=== PATIENT | male | born 1970 | race Caucasian/White ===

== ENCOUNTER 2016-04-11 03:36 | Inpatient (IN) | payer OTHER ==
[~2016-04-11] VITALS: Ht 185.4 cm; Wt 124.0 kg
[2016-04-11] VITALS (19 sets, daily range): BP systolic 140–184; BP diastolic 84–112; PULSE 70–140; TEMP 36.6–37.4; O2SAT 98–99; Ht 185.4 cm; Wt 124.0 kg
[~2016-04-11 03:36] MED LIST: BISO5TAB3 PO; CRDCD300 PO; FRS/80 PO; HYDR4TAB2 PO; HYDR8TAB29 PO
[2016-04-11] MEDS ORDERED: LORAZEPAM 2 MG/ML 1 ML VIAL ONE (03:41)
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
[2016-04-11] MEDS ORDERED: ACETAMINOPHEN 500 MG TAB PO STA (04:08)
[2016-04-11 04:16] LABS: BASO % 0.1 %; BASO ABS # 0.01 K/uL (0-0.2); COMPLETE YES; EOS % 0.1 %; HEMATOCRIT 33.1 % (42-52); IG% 0.5 %; LYMPH % 1.5 %; LYMPH ABS # 0.13 K/uL (1.2-3.4); MEAN CELL VOLUME 80.5 fL (80-100); MEAN CORPUSCULAR HGB CONC 33.5 g/dl (32-36); MEAN PLATELET VOLUME 10.1 fL (7.4-10.4); MONO % 0.7 %; NEUT % 97.1 %; PLATELET COUNT 111 K/uL (130-400); RED BLOOD COUNT 4.11 M/uL (4.7-6.1); WHITE BLOOD COUNT 8.74 K/uL (4.8-10.8)
[2016-04-11 04:24] LABS: INR 1.1 (0.9-1.1); PROTHROMBIN TIME (PATIENT) 11.9 SECONDS (9.0-12.0)
[2016-04-11 04:48] LABS: ALB/GLOB RATIO 0.8 (0.9-2); BUN/CREATININE RATIO 7.9 (10-20); CALCIUM 8.1 mg/dl (8.5-10.1); CKMB/CK RATIO 5.6 (0-3.0); CREATININE 8.3 mg/dl (0.60-1.40); POTASSIUM 5.6 mmol/L (3.5-5.1)
[2016-04-11] MEDS ORDERED: VANCOMYCIN INJ 1,000 MG in SODIUM CHLORIDE 0.9% 250ML 250 ML IV STA (05:02)
[2016-04-11] MEDS ORDERED: AZTREONAM IV 2,000 MG in DEXTROSE 5% 100ML 100 ML IV STA (05:02)
[2016-04-11] MEDS ORDERED: HYDROmorphone INJ 2 MG/ML SYR/VIAL IV STA (05:23)
--- NOTE | 2016-04-11 07:34 | DIAGNOSTIC IMAGING REPORT ---
CHEST ONE VIEW PORTABLE CLINICAL HISTORY: b12b dyspnea COMPARISON STUDY: 02/08/2016 FINDINGS: Moderate cardiomegaly. Prominent pulmonary vasculature. Prominent central hilar shadows unchanged. PermCath in superior vena cava. Aeration left lung bases slightly improved as is the peripheral aspect of the right base. IMPRESSION: Improving congestive heart failure. Electronically signed by: Max Anand M.D. 04/11/2016 7:32 AM Dictated Date/Time: 04/11/2016 7:32 AM
[2016-04-11] MEDS ORDERED: ACETAMINOPHEN 325 MG TAB PO PRN (08:00)
[2016-04-11] MEDS ORDERED: GLUCOSE 40% GEL 15 GM TUBE PO PRN (08:00)
[2016-04-11] MEDS ORDERED: GLUCOSE 10 TABS/TUBE PO PRN (08:00)
[2016-04-11] MEDS ORDERED: ONDANSETRON INJ 2 MG/ML 2 ML VIAL IV PRN (08:00)
[2016-04-11] MEDS ORDERED: DEXTROSE 50% 50 ML SYR IV PRN (08:00)
[2016-04-11] MEDS ORDERED: GLUCAGON FOR INJ 1 MG VIAL SQ PRN (08:00)
[2016-04-11] MEDS ORDERED: POLYETHYLENE (MIRALAX) 17 GM PACK PO PRN (08:00)
[2016-04-11] MEDS ORDERED: PHARMACY GLYCEMIC MGMT CONSULT PRN (08:10)
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
[2016-04-11] MEDS ORDERED: HydrALAZINE HCL 20 MG/ML VIAL IV. PRN (08:30)
[2016-04-11 08:44] LABS: PHOSPHORUS 1.6 mg/dl (2.5-4.9)
[2016-04-11] MEDS ORDERED: VANCOMYCIN CONSULT ACTIVE PRN (09:15)
[2016-04-11] MEDS ORDERED: AZTREONAM CONSULT ACTIVE PRN ×2 (09:15)
[2016-04-11] MEDS ORDERED: VANCOMYCIN INJ 1,600 MG in SODIUM CHLORIDE 0.9% 500ML 500 ML IV SCH (09:30)
[2016-04-11] MEDS ORDERED: SODIUM CHLORIDE 0.9% 1000ML 1,000 ML IV SCH (10:15)
[2016-04-11] MEDS: HYDROmorphone HCL 2 MG TAB PO PRN ×2 (10:21→19:59)
[2016-04-11] MEDS: INSULIN GLARGINE SOLOSTAR 100 UNITS/ML 3 ML PEN SC SCH ×2 (10:30→21:00)
[2016-04-11] MEDS: INSULIN ASPART 100 UNITS/ML 3 ML PEN SC SCH ×3 (11:00→21:00)
--- NOTE | 2016-04-11 11:10 | Pharmacy Progress Note ---
Pharmacy Antibiotic Consult Date of Service: Apr 11, 2016. Pharmacy Dosing Scope Pharmacy is consulted to initiate Vancomycin and Aztreonam IV dosing therapy, order appropriate labs and adjust drug dose/frequency. Subjective The patient is a 45 year old male admitted on Apr 11, 2016 at 07:52 with Sepsis , meets protocol (pulmonary based) that Dr. Johnson ordered both Azactam and Vancomycin. Patient received first dose of both in the E.D. Objective Height (Feet): 6 Height (Inches): 1.00 Weight (Kilograms): 130.000 Lab Results (24hrs): Laboratory Tests Test 04/11/16 03:55 BUN/Creatinine Ratio 7.9 Blood Urea Nitrogen 66 mg/dl Creatinine 8.30 mg/dl White Blood Count 8.74 K/uL Red Blood Count 4.11 M/uL Hemoglobin 11.1 g/dL Hematocrit 33.1 % Mean Corpuscular Volume 80.5 fL Mean Corpuscular Hemoglobin 27.0 pg Mean Corpuscular Hemoglobin Concent 33.5 g/dl Platelet Count 111 K/uL Mean Platelet Volume 10.1 fL Neutrophils (%) (Auto) 97.1 % Lymphocytes (%) (Auto) 1.5 % Monocytes (%) (Auto) 0.7 % Eosinophils (%) (Auto) 0.1 % Basophils (%) (Auto) 0.1 % Neutrophils # (Auto) 8.49 K/uL Lymphocytes # (Auto) 0.13 K/uL Monocytes # (Auto) 0.06 K/uL Eosinophils # (Auto) 0.01 K/uL Basophils # (Auto) 0.01 K/uL Micro Results: Item Value Date Time Blood Culture Received 04/11/16 0436 Blood Pending Blood Culture Received 04/11/16 0427 Blood Pending Recent Pertinent Medications Item Value Date Time Aztreonam 500 mg/ 105 ml @ 105 mls/hr 04/11/16 1400 Dextrose Q8H/IV Assessment & Plan The patient is ESRD patient on Hemodialysis. He received a Vancomycin 1gm dose in the E.D., I additionally ordered 1600mg to give him a total loading dose of 2600mg (~20mg/kg) Will check a random level with AM labs tomorrow morning and proceed based on HD sessions going forward. In regards to Aztreonam, patient received Azactam 2gm IV x 1 in the E.D and then will receive 25% of regular dose on regular frequency of every 8 hours going forward. Patient has temporary HD catheter in place at this time due to failure of his RUE fistula. Pharmacy will continue to follow and will adjust dose/frequency as necessary. Thank you
[2016-04-11 13:10] LABS: INFLUENZA A PCR Neg for Influ A (NEG); INFLUENZA B PCR Neg for Influ B (NEG)
[2016-04-11] MEDS: HEPARIN SOD 5000 UNIT/0.5 ML CARP SQ SCH ×2 (14:00→22:00)
[2016-04-11] MEDS: AZTREONAM IV 500 MG in DEXTROSE 5% 100ML 100 ML IV SCH ×2 (14:24→21:54)
[2016-04-11] MEDS: HEPARIN SOD (PORCINE) 1000 UNIT/ML 10 ML VIAL IV SCH ×3 (16:30→18:30)
[2016-04-11] MEDS ORDERED: HEPARIN SOD (PORCINE) 1000 UNIT/ML 10 ML VIAL IV SCH (16:30)
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
[2016-04-11] MEDS ORDERED: hydrOXYzine HCL 10 MG TAB PO PRN (23:00)
--- NOTE | 2016-04-11 23:07 | Progress Note ---
Progress Note Date of Service Apr 11, 2016. Progress Note ATTENDING NOTE : 45 yo Male poorly compliant to medical care ESRD on HD, HX Of CAD, diastolic heart failure multiple co morbidities admitted with SOB , missed HD found to be vol overloaded with electrolyte derangement -Hyperkalemia POC troponin was elevated repeat level normalized CXray shows pulmonary vascular congestion Acute on chronic CHF with diastolic dysfunction due to vol overload missed HD appreciate Nephrology eval s/p HD today follow vol status Elevated troponin : in setting of decompensated CHF /ESRD pt has hx of CAD , with poor compliance to meds ECHO : on 01/2016 -preserved LV function EF 55-60 % correction of vol status with HD repeat ECHO ordered consider Cardiology eval if new wall motion abnormality noted pt was seen by [facility] in last admission elevated Lactic acid : r/o Sepsis blood culture /urine culture ordered on empiric ABx cont ABx till culture reports are available full code
[2016-04-11 23:10] LABS: URINE APPEARANCE CLOUDY (CLEAR); URINE BILIRUBIN NEG (NEG); URINE COLOR YELLOW; URINE EPITHELIAL CELL AUTO >30 /lpf (0-5); URINE NITRITE NEG (NEG); URINE SPECIFIC GRAVITY 1.014 (1.000-1.030); UROBILINOGEN NEG (NEG)
[2016-04-11 23:17] LABS: MANUAL MICROSCOPIC REQUIRED? NO; REVIEW REQ? YES
[2016-04-11 23:22] LABS: URINE PATH CASTS 1-5 GRANULAR CASTS /lpf (0)
[2016-04-11 23:58] LABS: CALCIUM 7.4 mg/dl (8.5-10.1); CREATININE 6.7 mg/dl (0.60-1.40); MAGNESIUM 2.1 mg/dl (1.8-2.4); POTASSIUM 4.8 mmol/L (3.5-5.1)
[2016-04-12] VITALS (25 sets, daily range): BP systolic 133–176; BP diastolic 73–109; PULSE 67–89; TEMP 36.5–37.4; O2SAT 97–100
[2016-04-12] MEDS: HYDROmorphone HCL 2 MG TAB PO PRN ×3 (01:20→17:01)
[2016-04-12] MEDS: AZTREONAM IV 500 MG in DEXTROSE 5% 100ML 100 ML IV SCH ×3 (05:58→21:02)
[2016-04-12] MEDS: HEPARIN SOD 5000 UNIT/0.5 ML CARP SQ SCH ×3 (06:00→20:58)
[2016-04-12 06:43] LABS: HEMATOCRIT 32.6 % (42-52); MEAN CELL VOLUME 82.7 fL (80-100); MEAN CORPUSCULAR HEMOGLOBIN 27.7 pg (25-34); MEAN CORPUSCULAR HGB CONC 33.4 g/dl (32-36); PLATELET COUNT 100 K/uL (130-400); RED BLOOD COUNT 3.94 M/uL (4.7-6.1); WHITE BLOOD COUNT 6.88 K/uL (4.8-10.8)
[2016-04-12 06:57] LABS: ESTIMATED AVERAGE GLUCOSE 108 mg/dl; HA1C FLAG Normal (Normal)
[2016-04-12] MEDS: INSULIN ASPART 100 UNITS/ML 3 ML PEN SC SCH ×4 (07:00→20:56)
--- NOTE | 2016-04-12 07:50 | Nephrology Progress Note ---
Nephrology Progress Note Date of Service: Apr 12, 2016. Subjective 45 yo male with esrd with chronic pancreatitis who was admitted with elevated blood pressures, sob, volume overload. also had n/v and fevers and chills. missed dialysis on monday. pt has chronic abdominal pain. no more n/v. eating breakfast well. not requiring oxygen. had short dialysis treatment yesterday. Objective Date Time Temp Pulse Resp B/P Pulse Ox O2 Delivery O2 Flow Rate FiO2 04/12/16 04:00 36.8 67 19 141/98 97 Room Air 04/12/16 04:00 Room Air 04/12/16 00:00 36.7 75 17 150/102 98 Room Air 04/11/16 23:59 Room Air 04/11/16 21:40 36.8 95 179/106 04/11/16 21:30 140 163/110 04/11/16 21:15 92 157/110 04/11/16 21:00 80 162/101 04/11/16 20:45 78 165/105 04/11/16 20:30 78 167/111 04/11/16 20:15 84 150/112 04/11/16 20:00 Room Air 04/11/16 20:00 79 159/106 04/11/16 19:45 80 168/100 04/11/16 19:36 37.0 81 22 161/104 99 Room Air 04/11/16 19:30 72 178/107 04/11/16 19:15 86 159/110 04/11/16 19:00 84 175/103 04/11/16 18:45 80 169/102 04/11/16 18:30 75 178/97 04/11/16 18:15 72 184/109 04/11/16 17:55 37.0 70 176/112 04/11/16 16:00 Room Air 04/11/16 15:27 36.6 75 18 140/84 98 Room Air 04/11/16 12:00 Room Air 04/11/16 09:51 37.4 88 18 159/90 98 Room Air 04/11/16 08:16 94 04/11/16 07:50 89 25 144/78 98 Room Air Physical Exam: General-aaox3 Eyes-no scleral icterus ENT-mmm Neck-supple Lungs-cta Heart-rrr, 2/6 systolic murmur Abdomen-mild tenderness diffusely Extremities-+1 edema Neuro-nonfocal Current Inpatient Medications Medications (Trade) Dose Ordered Sig/Sania Route Start Time Stop Time Status Last Admin Dose Admin Heparin Sodium (Porcine) (Heparin Sq 5000 Unit/0.5ml) 5,000 unit Q8 SQ 04/11/16 14:00 05/11/16 13:59 Acetaminophen (Tylenol Tab) 650 mg Q4H PRN PO 04/11/16 08:00 05/11/16 07:59 Ondansetron HCl (Zofran Inj) 4 mg Q6H PRN IV 04/11/16 08:00 05/11/16 07:59 Polyethylene (Miralax Powder Packet) 17 gm DAILY PRN PO 04/11/16 08:00 05/11/16 07:59 Insulin Glargine (Lantus Solostar Pen) 12 unit Q12 SC 04/11/16 10:30 05/11/16 10:29 Insulin Aspart (novoLOG ASPART) SLIDING SCALE If C... ACHS SC 04/11/16 11:00 05/11/16 10:59 Glucose (Glucose 40% Gel) 15-30 GRAMS 15 GRAMS... UD PRN PO 04/11/16 08:00 05/11/16 07:59 Glucose (Glucose Chew Tab) 4-8 Tablets 4 Tabl... UD PRN PO 04/11/16 08:00 05/11/16 07:59 Dextrose (Dextrose 50% 50ML Syringe) 25-50ML OF 50% DW IV FOR... UD PRN IV 04/11/16 08:00 05/11/16 07:59 Glucagon (Glucagon Inj) 1 mg UD PRN SQ 04/11/16 08:00 05/11/16 07:59 Hydromorphone HCl (Dilaudid Tab) 4 mg QID PRN PO 04/11/16 08:00 04/25/16 07:59 04/12/16 01:20 4 MG Hydromorphone HCl (Dilaudid Tab) 8 mg TID PO 04/11/16 10:30 04/25/16 10:29 04/11/16 21:04 8 MG Aztreonam (Consult) 1 ea UD PRN N/A 04/11/16 09:15 05/11/16 09:14 Hydralazine HCl (HydrALAZINE INJ) 10 mg Q6H PRN IV. 04/11/16 08:30 05/11/16 08:29 Influenza Virus Vaccine Quadrival (Flu Vaccine) 0.5 ml ONCE ONCE IM. 04/12/16 08:00 04/12/16 08:01 Vancomycin HCl 1 ea 1 ea UD PRN N/A 04/11/16 09:15 05/11/16 09:14 Aztreonam/Dextrose (Azactam IV/D5 100ml) 105 ml @ 105 mls/hr Q8H IV 04/11/16 14:00 04/18/16 13:59 04/12/16 05:58 105 MLS/HR Heparin Sodium (Porcine) (Heparin Iv Bolus) 1,000 unit ONE IV 04/12/16 08:00 04/12/16 08:01 Heparin Sodium (Porcine) (Heparin Iv Bolus) 400 unit Q1H IV 04/12/16 08:00 04/12/16 10:01 Heparin Sodium (Porcine) (Heparin Iv Bolus) 1,000 unit ONE IV 04/12/16 08:00 04/12/16 08:01 Heparin Sodium (Porcine) (Heparin Iv Bolus) 400 unit Q1H IV 04/12/16 08:00 04/12/16 10:01 Hydroxyzine HCl (Vistaril Tab) 10 mg Q6H PRN PO 04/11/16 23:00 05/11/16 22:59 04/11/16 23:12 10 MG Last 24 Hours Test 04/11/16 09:45 04/11/16 10:49 04/11/16 11:35 04/11/16 15:58 Bedside Glucose 199 mg/dl 123 mg/dl Total Creatine Kinase 22 U/L Troponin I 0.177 ng/ml Lactic Acid Level 0.9 mmol/L Test 04/11/16 20:08 04/11/16 21:40 04/11/16 23:01 04/12/16 06:15 Bedside Glucose 96 mg/dl Urine Color YELLOW Urine Appearance CLOUDY Urine pH 5.0 Urine Specific [place] 1.014 Urine Protein 4+ Urine Glucose (UA) TRACE Urine Ketones NEG Urine Occult Blood 3+ Urine Nitrite NEG Urine Bilirubin NEG Urine Urobilinogen NEG Urine Leukocyte Esterase NEG Urine WBC (Auto) 5-10 /hpf Urine RBC (Auto) >30 /hpf Urine Hyaline Casts (Auto) 10-30 /lpf Urine Epithelial Cells (Auto) >30 /lpf Urine Bacteria (Auto) 1+ Urine Renal Epithelial Cells /lpf Urine Pathogenic Casts 1-5 GRANULAR CASTS /lpf Sodium Level 135 mmol/L Potassium Level 4.8 mmol/L Chloride Level 102 mmol/L Carbon Dioxide Level 25 mmol/L Anion Gap 8.0 mmol/L Blood Urea Nitrogen 60 mg/dl Creatinine 6.70 mg/dl Est Creatinine Clear Calc Drug Dose 19.9 ml/min Estimated GFR () 10.6 Estimated GFR (Non- 9.1 BUN/Creatinine Ratio 9.0 Random Glucose 102 mg/dl Calcium Level 7.4 mg/dl Magnesium Level 2.1 mg/dl Hepatitis B Surface Antigen NEG Hepatitis B Surface Antibody NEG White Blood Count 6.88 K/uL Red Blood Count 3.94 M/uL Hemoglobin 10.9 g/dL Hematocrit 32.6 % Mean Corpuscular Volume 82.7 fL Mean Corpuscular Hemoglobin 27.7 pg Mean Corpuscular Hemoglobin Concent 33.4 g/dl RDW Standard Deviation 49.3 fL RDW Coefficient of Variation 16.1 % Platelet Count 100 K/uL Mean Platelet Volume 10.0 fL Estimated Average Glucose 108 mg/dl Hemoglobin A1c 5.4 % Random Vancomycin Level 19.2 mcg/ml Date/Time Source Procedure Growth Status 04/11/16 21:40 Urine , Clean Catch Urine Culture Pending Received Assessment & Plan ESRD-for dialysis again today since today is his regular dialysis treatment schedule. when speaking to dialysis unit, pt has not brought in his med list. Dr. Ruiz has given him bp medications which he does not take. has a history of non-compliance and misses about once every other week and never stays for his full treatment. HTN-will try to obtain home meds, currently does not appear to be on bp medications. has a very long list of allergies. supposed to be on dilt but does not take it. pt states he starts to feel like he is going to pass out when the bp is lower. pt is willing to take the dilt and will give a much lower dose of 90mg to try to get goal diastolic under 100. LIDYA-phosphate binders are on hold secondary to low phos and likely will need restarted at some point in the hospitilization. meds he is supposed to be taking-likely not taking any of them other than the dilaudid: albuterol amiodarone 200mg po bid aspirin 81mg auryxia 3 tabs po tid with meals renvela 800mg 3 tabd tid with meals dilaudid 8mg four times a day lantus 50 units sq at bedtime nephrocaps vitamin d3 1000 iu bid zebeta 5mg at night diltiazem 240mg qam
[2016-04-12 08:00] LABS: BUN/CREATININE RATIO 8.4 (10-20); CALCIUM 7.6 mg/dl (8.5-10.1); CREATININE 7.3 mg/dl (0.60-1.40); MAGNESIUM 2.3 mg/dl (1.8-2.4); PHOSPHORUS 3.7 mg/dl (2.5-4.9); POTASSIUM 5.3 mmol/L (3.5-5.1)
[2016-04-12] MEDS ORDERED: INFLUENZA VIRUS QUAD VACCINE 0.5 ML SYR IM. ONE (08:00)
[2016-04-12] MEDS ORDERED: HEPARIN SOD (PORCINE) 1000 UNIT/ML 10 ML VIAL IV SCH ×2 (08:00)
[2016-04-12] MEDS: HEPARIN SOD (PORCINE) 1000 UNIT/ML 10 ML VIAL IV SCH ×4 (08:00→09:00)
[2016-04-12] MEDS: INSULIN GLARGINE SOLOSTAR 100 UNITS/ML 3 ML PEN SC SCH ×2 (08:20→20:56)
[2016-04-12] MEDS ORDERED: DILTIAZEM HCL 120 MG ER CAP PO SCH (09:00)
--- NOTE | 2016-04-12 09:21 | Pharmacy Progress Note ---
Pharmacy Antibiotic Prog Note Date of Service: Apr 12, 2016. Subjective: The patient is currently receiving vancomycin 2600 mg IV x 1 dose yesterday . The patient is currently on day # 2 of IV therapy. Objective: Height (Feet): 6 Height (Inches): 1.00 Weight (Kilograms): 127.900 Levels: Item Value Date Time Random Vancomycin Level 19.2 mcg/ml 04/12/16 0615 Lab Results (24hrs): Laboratory Tests Test 04/11/16 23:01 04/12/16 06:15 BUN/Creatinine Ratio 9.0 8.4 Blood Urea Nitrogen 60 mg/dl 62 mg/dl Creatinine 6.70 mg/dl 7.30 mg/dl White Blood Count 6.88 K/uL Assessment & Plan: was admitted yesterday on 04/11/16 due to fevers/flushing as well as missing his dialysis session on Monday. The source of his infection is unknown. He received hemodialysis yesterday. He was febrile yesterday with a Tmax of 38.2 but is not febrile today. His WBC is normal. This drug level is: Therapeutic Give vancomycin 1300 mg IV x 1 dose after hemodialysis Goal peak level estimate: between 35 - 40 mcg/mL. Goal trough level estimate: between 15 - 20 mcg/mL (indication: sepsis/ pulmonary source?). Random level has been ordered for: . Pharmacy will continue to follow and will adjust dose/frequency as necessary. Thank you
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
--- NOTE | 2016-04-12 11:20 | CARDIOLOGY CONSULTATION ---
DATE OF CONSULTATION: 04/12/2016 The patient seen and examined. Chart, medications, telemetry reviewed. REFERRING: Dr. Jennings. INDICATIONS: Wide complex tachycardia. HISTORY OF PRESENT ILLNESS: The patient is a 45-year-old complex male whose past medical history is notable for end-stage renal disease, on chronic dialysis replacement, history of necrotizing pancreatitis in 2007, multiple abdominal surgeries and abdominal hernias, history of past Staph aureus bacteremia and sepsis secondary to dialysis catheter infection, history of obesity, paroxysmal atrial arrhythmias with paroxysmal Afib flutter, who per report underwent flutter ablation during hospitalization in 09/[address] Olivo. He was recently hospitalized at [facility] in January with volume overload. He presents now once again noting worsening shortness of breath and increasing edema. Notes he felt poorly on Monday prior to admission with nausea and diarrhea, skipped dialysis that day, and presented due to worsening shortness of breath and complaints with anticipated inpatient management for volume overload, exclusion of possible underlying infection. While on monitor last night, he had paroxysmal Afib flutter with rapid ventricular response and aberrant conduction. He is referred now for further evaluation. He notes he had stopped all of his medications at home, "all medications make him feel poorly." He had previously been taking Zebeta, amiodarone as well as diltiazem in intermittent courses for management of arrhythmias. He notes he is not taking any of those recently. Denies headache or visual changes. Notes no melena, hematochezia, dysuria or hematuria. Has been notable for anorexia and gradual drop in weight. Notes no acute abdominal pain or discomfort. Blood pressures were substantially elevated on initial ER presentation. Notes blood pressures have been running high at home. He is currently undergoing dialysis. REVIEW OF SYSTEMS: Otherwise negative. ALLERGIES: MULTIPLE AND INCLUDE ISAMAR INHIBITORS, ALISKIREN, AMLODIPINE, BISOPROLOL, CLONIDINE, HALOPERIDOL, LABETALOL, LISINOPRIL, METOPROLOL, PENICILLIN, PIPERCILLIN/TAZOBACTAM, AND VANCOMYCIN. PAST MEDICAL HISTORY: In addition to above is notable for past elevations in troponins as well as preserved LV systolic function, presumed diastolic heart failure, and possible underlying ischemic heart disease. Carries a history of diabetes mellitus following necrotizing pancreatitis in 2007. PAST SURGICAL HISTORY: Notable for prior multiple abdominal surgeries and pancreatectomy, cholecystectomy, past tracheostomy during the acute illness. FAMILY HISTORY: Noncontributory. SOCIAL HISTORY: The patient is one-half pack per day smoker, uses no alcohol products. He is noncompliant with medications per history and per his own description. PHYSICAL EXAMINATION: VITAL SIGNS: Heart rate is 75, blood pressure is 146/95. HEENT: Normocephalic, atraumatic. Nares without discharge. Throat was clear. LUNGS: Reveal diminished breath sounds but are predominantly clear. CARDIOVASCULAR: Regular. There is no S3 gallop. ABDOMEN: Obese, soft, very large herniation of the abdominal tolbert with multiple ventral hernias. EXTREMITIES: Without cyanosis or clubbing. There is trace to 1+ lower extremity edema. NEUROLOGIC: The patient has a flat affect but answers questions appropriately. LABORATORY DATA: On presentation, white cell count was 8.7, hemoglobin 11.1, hematocrit of 31.1, platelet count was 111. Sodium is 137, potassium is 5.3, chloride is 104, bicarbonate is 23, BUN 62, creatinine is 7.3 this morning, calcium was 7.6. Troponins on presentation were elevated at 0.14 and 0.17, though with normal CK and MB fractions. He has been began on empiric antibiotic therapies due to concerns regarding possible infection, past history of dialysis catheter based infection. EKG reveals sinus rhythm with low-voltage QRS, nonspecific ST-segment changes. Telemetry reveals paroxysmal Afib flutter last evening with rapid rhythm with aberrant conduction on one occasion. IMPRESSION: A 45-year-old male with complex history of end-stage renal disease, past history of Afib flutter with rapid ventricular response, poor tolerance of medications and noncompliance, presents now with acute volume overload, renal insufficiency, possible underlying infection not excluded. Telemetry demonstrated an episode of Afib flutter with rapid ventricular response. PLAN: We will attempt to reinstitute low-dose beta-ted with carvedilol given past multiple intolerances. This may help with blood pressure as well, though patients undergoing dialysis should help significantly. Echocardiogram will be ordered given low voltage to exclude pericardial effusion given dialysis noncompliance. We will follow the patient along. If arrhythmias recur, would reconsult Dr. Olivo who performed Afib flutter ablation in 09/2015. [facility]
[2016-04-12] MEDS ORDERED: CARVEDILOL 3.125 MG TAB PO ONE (11:30)
[2016-04-12] MEDS ORDERED: VANCOMYCIN INJ 1,300 MG in SODIUM CHLORIDE 0.9% 250ML 250 ML IV SCH (18:00)
[2016-04-12] MEDS ORDERED: CARVEDILOL 3.125 MG TAB PO SCH (21:00)
[2016-04-13] VITALS (21 sets, daily range): BP systolic 128–195; BP diastolic 84–123; PULSE 72–93; TEMP 36.5–37.2; O2SAT 95–98
[2016-04-13] MEDS: HYDROmorphone HCL 2 MG TAB PO PRN ×4 (01:25→23:20)
[2016-04-13] MEDS: HEPARIN SOD 5000 UNIT/0.5 ML CARP SQ SCH ×3 (06:00→19:38)
[2016-04-13] MEDS: AZTREONAM IV 500 MG in DEXTROSE 5% 100ML 100 ML IV SCH ×2 (06:25→13:35)
[2016-04-13] MEDS: INSULIN ASPART 100 UNITS/ML 3 ML PEN SC SCH ×4 (07:00→19:38)
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
[2016-04-13] MEDS: INSULIN GLARGINE SOLOSTAR 100 UNITS/ML 3 ML PEN SC SCH ×2 (09:00→19:37)
[2016-04-13 09:06] LABS: BUN/CREATININE RATIO 9.1 (10-20); CALCIUM 7.8 mg/dl (8.5-10.1); CREATININE 6.4 mg/dl (0.60-1.40); MAGNESIUM 2.4 mg/dl (1.8-2.4); POTASSIUM 5.7 mmol/L (3.5-5.1)
--- NOTE | 2016-04-13 10:05 | CARDIOLOGY PROGRESS NOTE ---
DATE: 04/13/2016 DATE: 04/13/2016. The patient seen and examined. Chart, medications, telemetry reviewed. SUBJECTIVE: The patient notes no complaints today. Telemetry reveals no further tachyarrhythmias. Denies any chest pain or shortness of breath. Blood pressures are trending to better improved control since dialysis yesterday. Notes no overt complaints with current addition of carvedilol. OBJECTIVE: VITAL SIGNS: Heart rate 75-80, blood pressure is 157/103 this morning. NECK: Thick. There is no jugular venous distention. LUNGS: Clear. CARDIOVASCULAR EXAMINATION: Regular. There is no S3 gallop. ABDOMEN: Soft, nontender. EXTREMITIES: Without cyanosis or clubbing. DATA: Laboratory studies sodium is 137, potassium is 5.7, chloride is 103, bicarbonate 24, BUN is 59, creatinine 6.4. Blood and urine cultures remain negative to date. EKG this morning reveals sinus rhythm with normal tracing. IMPRESSION: A 45-year-old male admitted with hypervolemia secondary to end-stage renal disease, history of past Afib flutter with past flutter ablation in 2016 with transient run of Afib flutter during initial hospitalization with aberrant conduction. He is hypertensive with electrolyte disturbances in the setting. PLAN: Increase carvedilol to 6.25 mg twice per day. Hold diltiazem for now as patient is reluctant to continue as an outpatient. Troponins are elevated as expected with renal insufficiency. We will review echocardiogram. EKGs reflect no ischemic changes with normal tracing. No documented prior history of coronary artery disease. Will review echocardiogram as available. Recommend continued dialysis as planned. [facility]
--- NOTE | 2016-04-13 10:23 | Nephrology Progress Note ---
Nephrology Progress Note Date of Service: Apr 13, 2016. Subjective 45 yo male with esrd with chronic pancreatitis who was admitted with elevated blood pressures, sob, volume overload. pt with transient afib. cardiology started on coreg. had dialysis yesterday however k is elevated today. Objective Date Time Temp Pulse Resp B/P Pulse Ox O2 Delivery O2 Flow Rate FiO2 04/13/16 08:00 98 Room Air 04/13/16 07:56 37.2 78 20 157/103 98 Room Air 04/13/16 04:15 Room Air 04/13/16 04:00 36.5 72 19 128/84 95 Room Air 04/13/16 00:10 Room Air 04/13/16 00:00 36.5 72 19 135/94 97 Room Air 04/12/16 20:40 98 Room Air 04/12/16 19:25 37.1 73 15 143/89 97 Nasal Cannula 04/12/16 16:08 Room Air 04/12/16 16:06 36.9 80 22 135/83 97 Room Air 04/12/16 13:40 36.8 88 176/98 04/12/16 13:30 89 161/98 04/12/16 13:15 84 166/101 04/12/16 13:00 83 151/93 04/12/16 12:45 88 148/95 04/12/16 12:30 78 142/80 04/12/16 12:15 79 146/92 04/12/16 12:10 36.5 78 17 138/73 98 Room Air 04/12/16 12:07 Room Air 04/12/16 12:00 83 133/87 04/12/16 11:45 84 157/107 04/12/16 11:30 81 157/103 04/12/16 11:15 78 138/73 04/12/16 11:00 81 141/84 04/12/16 10:45 74 139/87 04/12/16 10:30 75 146/95 Physical Exam: General-aaox3 Eyes-no scleral icterus ENT-mmm Neck-supple Lungs-clear Heart-rrr Abdomen-mild tenderness diffusely Extremities-mild edema Neuro-nonfocal Current Inpatient Medications Medications (Trade) Dose Ordered Sig/Sania Route Start Time Stop Time Status Last Admin Dose Admin Heparin Sodium (Porcine) (Heparin Sq 5000 Unit/0.5ml) 5,000 unit Q8 SQ 2/27/17 14:00 05/11/16 13:59 Acetaminophen (Tylenol Tab) 650 mg Q4H PRN PO 04/11/16 08:00 05/11/16 07:59 Ondansetron HCl (Zofran Inj) 4 mg Q6H PRN IV 04/11/16 08:00 05/11/16 07:59 Polyethylene (Miralax Powder Packet) 17 gm DAILY PRN PO 04/11/16 08:00 05/11/16 07:59 Insulin Glargine (Lantus Solostar Pen) 12 unit Q12 SC 04/11/16 10:30 05/11/16 10:29 Insulin Aspart (novoLOG ASPART) SLIDING SCALE If C... ACHS SC 04/11/16 11:00 05/11/16 10:59 Glucose (Glucose 40% Gel) 15-30 GRAMS 15 GRAMS... UD PRN PO 04/11/16 08:00 05/11/16 07:59 Glucose (Glucose Chew Tab) 4-8 Tablets 4 Tabl... UD PRN PO 04/11/16 08:00 05/11/16 07:59 Dextrose (Dextrose 50% 50ML Syringe) 25-50ML OF 50% DW IV FOR... UD PRN IV 04/11/16 08:00 05/11/16 07:59 Glucagon (Glucagon Inj) 1 mg UD PRN SQ 04/11/16 08:00 05/11/16 07:59 Hydromorphone HCl (Dilaudid Tab) 4 mg QID PRN PO 04/11/16 08:00 04/25/16 07:59 04/13/16 01:25 4 MG Hydromorphone HCl (Dilaudid Tab) 8 mg TID PO 04/11/16 10:30 04/25/16 10:29 04/13/16 07:45 8 MG Aztreonam (Consult) 1 ea UD PRN N/A 04/11/16 09:15 05/11/16 09:14 Hydralazine HCl (HydrALAZINE INJ) 10 mg Q6H PRN IV. 04/11/16 08:30 05/11/16 08:29 Vancomycin HCl 1 ea 1 ea UD PRN N/A 04/11/16 09:15 05/11/16 09:14 Aztreonam/Dextrose (Azactam IV/D5 100ml) 105 ml @ 105 mls/hr Q8H IV 04/11/16 14:00 04/18/16 13:59 04/13/16 06:25 105 MLS/HR Hydroxyzine HCl (Vistaril Tab) 10 mg Q6H PRN PO 04/11/16 23:00 05/11/16 22:59 04/11/16 23:12 10 MG Carvedilol (Coreg Tab) 6.25 mg BID PO 04/13/16 21:00 05/13/16 20:59 Last 24 Hours Test 04/12/16 11:27 04/12/16 16:10 04/12/16 20:46 04/13/16 07:08 Bedside Glucose 103 mg/dl 177 mg/dl 199 mg/dl 140 mg/dl Test 04/13/16 07:51 Sodium Level 137 mmol/L Potassium Level 5.7 mmol/L Chloride Level 103 mmol/L Carbon Dioxide Level 24 mmol/L Anion Gap 10.0 mmol/L Blood Urea Nitrogen 59 mg/dl Creatinine 6.40 mg/dl Est Creatinine Clear Calc Drug Dose 20.5 ml/min Estimated GFR () 11.2 Estimated GFR (Non- 9.7 BUN/Creatinine Ratio 9.1 Random Glucose 142 mg/dl Calcium Level 7.8 mg/dl Magnesium Level 2.4 mg/dl Random Vancomycin Level 26.7 mcg/ml Assessment & Plan ESRD-for dialysis again today. unclear why his potassium would trend up after dialysis. on a 2k bath. access is working well and doubt recirculation. pt is chewing tobacco which is high in k but usually does this. not new. pt agreeable for dialysis again today and then tomorrow which is his regularly scheduled day.
--- NOTE | 2016-04-13 14:55 | ECHOCARDIOGRAM REPORT ---
*NOTICE TO RECEIVING [employer] This information is strictly Confidential and protected under [place] law. [place] law prohibits you from making any further disclosure of this information unless further disclosure is expressly permitted by the written consent of the person to whom it pertains or is authorized by law. A general authorization for the release of medical or other information is not sufficient for this purpose. Hospital accepts no responsibility if the information is made available to any other person, INCLUDING THE PATIENT. Interpretation Summary * Name: MIRIAN ESCAMILLA Study Date: 04/13/2016 11:50 AM BP: 164/107 mmHg * Patient Location: .2E\S\E207\S\1 HR: 76 * : 1970 (M/d/yyyy) Gender: Male Height: 73 in * Age: 45 yrs Ethnicity: [place] Weight: 286 lb * Ordering Physician: Carmenza Johnson * Performed By: Azeb Tracy * * Reason For Study: CHF * BSA: 2.5 m2 * The study was technically adequate. * Compared to prior study, changes are noted. * -- Conclusions -- * Ejection Fraction = 50-55%. * There is moderate concentric left ventricular hypertrophy. * The left atrium is severely dilated. * Mild aortic regurgitation. * There is moderate to severe mitral regurgitation. * The mitral regurgitant jet is eccentrically directed. * There is mild tricuspid regurgitation. * The estimated systolic PAP is 45mmHg. * Dilated inferior vena cava with reduced collapsability with sniff indicates an elevated right atrial pressure of 15 mmHg Procedure Details * A complete two-dimensional transthoracic echocardiogram was performed (2D, M-mode, Doppler and color flow Doppler). Left Ventricle * The left ventricle is normal in size. * There is moderate concentric left ventricular hypertrophy. * Ejection Fraction = 50-55%. * Left ventricular systolic function is normal. * There is borderline global hypokinesis of the left ventricle. Right Ventricle * The right ventricle is normal size. * The right ventricular systolic function is normal as assessed by tricuspid annular plane systolic excursion (TAPSE) (normal >1.5 cm). Atria * The left atrium is severely dilated. * Right atrial size is normal. * There is no evidence of atrial septal defect, but resolution does not allow assessment for a patent foramen ovale. Mitral Valve * The mitral valve is normal. * There is no mitral valve stenosis. * There is moderate to severe mitral regurgitation. * The mitral regurgitant jet is eccentrically directed. Tricuspid Valve * The tricuspid valve is normal. * There is no tricuspid stenosis. * There is mild tricuspid regurgitation. * The estimated systolic PAP is 45mmHg. Aortic Valve * The aortic valve is trileaflet. * Aortic valve sclerosis mild, without significant aortic valvular stenosis. * Aortic stenosis is absent. * Mild aortic regurgitation. Pulmonic Valve * The pulmonary valve is inadequately visualized, but the Doppler data is adequate for interpretation. * There is no pulmonic valvular stenosis. * Mild pulmonic valvular regurgitation. Great Vessels * The aortic root and proximal ascending aorta are normal sized. Pericardium/Pleural * There is no pericardial effusion. Great Vessels * Dilated inferior vena cava with reduced collapsability with sniff indicates an elevated right atrial pressure of 15 mmHg Left Ventricular Diastolic Function * Likely grade 3 diastolic dysfunction. MMode 2D Measurements and Calculations IVSd 1.7 cm IVSs 2.2 cm LVIDd 6.0 cm LVIDs 4.4 cm LVPWd 1.6 cm LVPWs 2.3 cm IVS/LVPW 1.0 FS 27.5 % EDV(Teich) 181.1 ml ESV(Teich) 85.8 ml EF(Teich) 52.6 % EDV(cubed) 217.7 ml ESV(cubed) 82.8 ml EF(cubed) 62.0 % % IVS thick 30.9 % % LVPW thick 44.7 % LV mass(C)d 485.0 grams LV mass(C)dI 193.6 grams/m\S\2 LV mass(C)s 509.9 grams LV mass(C)sI 203.6 grams/m\S\2 SV(Teich) 95.3 ml SI(Teich) 38.0 ml/m\S\2 SV(cubed) 134.9 ml SI(cubed) 53.8 ml/m\S\2 ACS 1.8 cm LA dimension 5.3 cm asc Aorta Diam 3.5 cm LVOT diam 2.2 cm LVOT area 3.8 cm\S\2 LVAd ap4 44.5 cm\S\2 LVLd ap4 9.7 cm EDV(MOD-sp4) 174.0 ml EDV(sp4-el) 172.6 ml LVAs ap4 27.6 cm\S\2 LVLs ap4 8.5 cm ESV(MOD-sp4) 75.9 ml ESV(sp4-el) 75.7 ml EF(MOD-sp4) 56.4 % EF(sp4-el) 56.1 % LVAd ap2 41.9 cm\S\2 LVLd ap2 8.7 cm EDV(MOD-sp2) 162.2 ml EDV(sp2-el) 171.3 ml LVAs ap2 27.7 cm\S\2 LVLs ap2 8.0 cm ESV(MOD-sp2) 74.9 ml ESV(sp2-el) 81.6 ml EF(MOD-sp2) 53.8 % EF(sp2-el) 52.4 % LVLd %diff -11.72 % EDV(MOD-bp) 172.9 ml LVLs %diff -7.09 % ESV(MOD-bp) 75.6 ml EF(MOD-bp) 56.3 % SV(MOD-sp4) 98.1 ml SI(MOD-sp4) 39.2 ml/m\S\2 SV(MOD-sp2) 87.3 ml SI(MOD-sp2) 34.8 ml/m\S\2 SV(MOD-bp) 97.3 ml SI(MOD-bp) 38.8 ml/m\S\2 SV(sp4-el) 96.9 ml SI(sp4-el) 38.7 ml/m\S\2 SV(sp2-el) 89.7 ml SI(sp2-el) 35.8 ml/m\S\2 Doppler Measurements and Calculations MV E max genevieve 135.9 cm/sec MV dec time 0.22 sec Ao V2 max 120.4 cm/sec Ao max PG 5.8 mmHg Ao max PG (full) 1.8 mmHg BLADE(V,A) 3.1 cm\S\2 BLADE(V,D) 3.1 cm\S\2 AI max genevieve 425.8 cm/sec AI max PG 72.5 mmHg AI dec slope 168.7 cm/sec\S\2 AI P1/2t 739.3 msec LV V1 max PG 4.0 mmHg LV V1 mean PG 1.8 mmHg LV V1 max 99.5 cm/sec LV V1 mean 61.7 cm/sec LV V1 VTI 17.6 cm MR max genevieve 616.9 cm/sec MR max PG 152.4 mmHg MR mean genevieve 496.6 cm/sec MR mean PG 109.1 mmHg MR VTI 201.7 cm SV(LVOT) 65.9 ml SI(LVOT) 26.3 ml/m\S\2 PA V2 max 87.2 cm/sec PA max PG 3.0 mmHg PI end-d genevieve 168.5 cm/sec TR max genevieve 273.1 cm/sec
[2016-04-13] MEDS: CARVEDILOL 6.25 MG TAB PO SCH (19:34)
[2016-04-14] VITALS (23 sets, daily range): BP systolic 144–182; BP diastolic 84–116; PULSE 67–82; TEMP 36.4–37.4; O2SAT 95–99
[2016-04-14] MEDS: HYDROmorphone HCL 2 MG TAB PO PRN ×3 (04:34→19:26)
[2016-04-14] MEDS: HEPARIN SOD 5000 UNIT/0.5 ML CARP SQ SCH ×3 (05:37→20:52)
--- NOTE | 2016-04-14 06:28 | Nephrology Progress Note ---
Nephrology Progress Note Date of Service: Apr 14, 2016. Subjective 45 yo male with esrd with chronic pancreatitis who was admitted with elevated blood pressures, sob, volume overload. pt with transient afib. cardiology started on coreg. has had two successive days of dialysis to help with k. pt states towards end of dialysis yesterday, he started to withdraw from his pain meds and get sick. minimal cramping later in his hand. Objective Date Time Temp Pulse Resp B/P Pulse Ox O2 Delivery O2 Flow Rate FiO2 04/14/16 05:25 73 174/114 04/14/16 04:53 36.9 75 20 179/115 99 Room Air 04/14/16 04:00 95 Room Air 04/14/16 00:12 36.9 71 20 153/101 95 Room Air 04/13/16 23:59 97 Room Air 04/13/16 19:46 37.0 86 21 167/93 97 Room Air 04/13/16 19:15 37.0 86 167/93 04/13/16 19:02 84 173/104 04/13/16 18:45 79 147/91 04/13/16 18:30 79 148/94 04/13/16 18:15 85 179/98 04/13/16 18:00 81 163/100 04/13/16 17:45 93 195/110 04/13/16 17:30 78 170/104 04/13/16 17:15 80 168/110 04/13/16 17:00 74 171/111 04/13/16 16:45 76 170/118 04/13/16 16:28 78 171/121 04/13/16 16:20 36.7 78 176/123 04/13/16 15:57 36.7 78 20 148/93 96 Room Air 04/13/16 15:30 Room Air 04/13/16 12:00 Room Air 04/13/16 11:28 37.0 76 16 164/107 98 Room Air 04/13/16 08:00 98 Room Air 04/13/16 08:00 Room Air 04/13/16 07:56 37.2 78 20 157/103 98 Room Air Physical Exam: General-aaox3 Eyes-no scleral icterus ENT-mmm Neck-supple Lungs-cta Heart-rrr Abdomen-mild tenderness diffusely Extremities-no edema Neuro-nonfocal Current Inpatient Medications Medications (Trade) Dose Ordered Sig/Sania Route Start Time Stop Time Status Last Admin Dose Admin Heparin Sodium (Porcine) (Heparin Sq 5000 Unit/0.5ml) 5,000 unit Q8 SQ 04/11/16 14:00 05/11/16 13:59 Acetaminophen (Tylenol Tab) 650 mg Q4H PRN PO 04/11/16 08:00 05/11/16 07:59 Ondansetron HCl (Zofran Inj) 4 mg Q6H PRN IV 04/11/16 08:00 05/11/16 07:59 Polyethylene (Miralax Powder Packet) 17 gm DAILY PRN PO 04/11/16 08:00 05/11/16 07:59 Insulin Glargine (Lantus Solostar Pen) 12 unit Q12 SC 04/11/16 10:30 05/11/16 10:29 Insulin Aspart (novoLOG ASPART) SLIDING SCALE If C... ACHS SC 04/11/16 11:00 05/11/16 10:59 Glucose (Glucose 40% Gel) 15-30 GRAMS 15 GRAMS... UD PRN PO 04/11/16 08:00 05/11/16 07:59 Glucose (Glucose Chew Tab) 4-8 Tablets 4 Tabl... UD PRN PO 04/11/16 08:00 05/11/16 07:59 Dextrose (Dextrose 50% 50ML Syringe) 25-50ML OF 50% DW IV FOR... UD PRN IV 04/11/16 08:00 05/11/16 07:59 Glucagon (Glucagon Inj) 1 mg UD PRN SQ 04/11/16 08:00 05/11/16 07:59 Hydromorphone HCl (Dilaudid Tab) 4 mg QID PRN PO 04/11/16 08:00 04/25/16 07:59 04/14/16 04:34 4 MG Hydromorphone HCl (Dilaudid Tab) 8 mg TID PO 04/11/16 10:30 04/25/16 10:29 04/13/16 19:34 8 MG Hydralazine HCl (HydrALAZINE INJ) 10 mg Q6H PRN IV. 04/11/16 08:30 05/11/16 08:29 Hydroxyzine HCl (Vistaril Tab) 10 mg Q6H PRN PO 04/11/16 23:00 05/11/16 22:59 04/11/16 23:12 10 MG Carvedilol (Coreg Tab) 6.25 mg BID PO 04/13/16 21:00 05/13/16 20:59 04/13/16 19:34 6.25 MG Last 24 Hours Test 04/13/16 07:08 04/13/16 07:51 04/13/16 20:32 04/14/16 05:55 Bedside Glucose 140 mg/dl 121 mg/dl Sodium Level 137 mmol/L Potassium Level 5.7 mmol/L Chloride Level 103 mmol/L Carbon Dioxide Level 24 mmol/L Anion Gap 10.0 mmol/L Blood Urea Nitrogen 59 mg/dl Creatinine 6.40 mg/dl Est Creatinine Clear Calc Drug Dose 20.5 ml/min Estimated GFR () 11.2 Estimated GFR (Non- 9.7 BUN/Creatinine Ratio 9.1 Random Glucose 142 mg/dl Calcium Level 7.8 mg/dl Magnesium Level 2.4 mg/dl Random Vancomycin Level 26.7 mcg/ml Assessment & Plan ESRD-will plan on dialysis again today since its his regularly scheduled day. hopefully k levels have improved. volume status appears appropriate. HTN: on coreg. pt has several drug intolerances and does not feel well when bp in goal range. have attempted to remove fluid as tolerated to help with bp but unlikely to get to within goal through fluid removal alone. pt so far agreeable to take the coreg. unclear if he will continue it as an outpt. overall poor prognosis given his significant non-compliant behaviour as an outpt.
[2016-04-14 06:43] LABS: HEMATOCRIT 31.4 % (42-52); MEAN CELL VOLUME 83.1 fL (80-100); MEAN CORPUSCULAR HEMOGLOBIN 27.2 pg (25-34); MEAN CORPUSCULAR HGB CONC 32.8 g/dl (32-36); MEAN PLATELET VOLUME 11.4 fL (7.4-10.4); PLATELET COUNT 138 K/uL (130-400); RED BLOOD COUNT 3.78 M/uL (4.7-6.1); WHITE BLOOD COUNT 6.09 K/uL (4.8-10.8)
[2016-04-14 06:51] LABS: BUN/CREATININE RATIO 7.8 (10-20); CALCIUM 7.9 mg/dl (8.5-10.1); MAGNESIUM 2.1 mg/dl (1.8-2.4); POTASSIUM 5.1 mmol/L (3.5-5.1)
[2016-04-14] MEDS: INSULIN ASPART 100 UNITS/ML 3 ML PEN SC SCH ×4 (07:00→20:52)
[2016-04-14] MEDS: CARVEDILOL 6.25 MG TAB PO SCH (08:20)
[2016-04-14] MEDS: INSULIN GLARGINE SOLOSTAR 100 UNITS/ML 3 ML PEN SC SCH ×2 (09:00→20:51)
--- NOTE | 2016-04-14 09:13 | CARDIOLOGY PROGRESS NOTE ---
DATE: 04/14/2016 DATE: 04/14/2016. The patient seen and examined. Chart, medications, telemetry reviewed. SUBJECTIVE: The patient has been hypertensive, but no further tachyarrhythmias. Today he appears slightly brighter, anticipates another round of dialysis today. Denies any chest pains or discomfort. Notes no orthopnea or worsening peripheral edema. OBJECTIVE: VITAL SIGNS: Heart rate is 79, blood pressure is 159/115. NECK: Thick. There is no distinct jugular venous distention. LUNGS: Clear. CARDIOVASCULAR EXAMINATION: Regular. There is no S3 gallop. ABDOMEN: Soft, nontender with large ventral hernia. EXTREMITIES: Without cyanosis or clubbing. There is 1+ lower extremity edema. LABORATORY DATA: White cell count 6.0, hemoglobin is 10.3, sodium is 137, potassium is 5.1, BUN is 37, creatinine is 6.0. IMPRESSION: A 45-year-old male admitted with issues as previously outlined, marked hypervolemia in setting of end-stage renal disease, marked hypertension, transient Afib flutter. PLAN: Will increase carvedilol to 12.5 mg twice per day. I am uncertain when single drug therapy will be sufficient at maintaining blood pressure control, though patient notes multiple drug-drug interactions and intolerances "just do not like to take pills". Hopefully this will aid in blood pressure along with ongoing dialysis ineffective and once heart rate control with beta ted would consider adding alpha ted with terazosin or doxazosin.
[2016-04-14] MEDS ORDERED: CARVEDILOL 6.25 MG TAB PO ONE (09:30)
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
[2016-04-14] MEDS: CARVEDILOL 12.5 MG TAB PO SCH (21:18)
[2016-04-15 00:34] VITALS: BP 142/88; PULSE 67; TEMP 36.9; O2SAT 98
[2016-04-15] MEDS: HYDROmorphone HCL 2 MG TAB PO PRN ×2 (04:19→11:11)
[2016-04-15 04:26] VITALS: BP 161/114; PULSE 75; TEMP 36.7; O2SAT 100
[2016-04-15] MEDS: HEPARIN SOD 5000 UNIT/0.5 ML CARP SQ SCH (05:46)
[2016-04-15 05:48] VITALS: BP 156/98
--- NOTE | 2016-04-15 06:37 | Nephrology Progress Note ---
Nephrology Progress Note Date of Service: Apr 15, 2016. Subjective 45 yo male with esrd with chronic pancreatitis who was admitted with elevated blood pressures, sob, volume overload. pt with transient afib and hyperkalemia. underwent dialysis for the past three days to help control blood pressures and help control potassium. pt with tremors this morning and nausea and upset stomach. however he states these are not new symptoms and pt really wants to go home today. Objective Date Time Temp Pulse Resp B/P Pulse Ox O2 Delivery O2 Flow Rate FiO2 04/15/16 05:48 156/98 04/15/16 04:26 36.7 75 20 161/114 100 Room Air 04/15/16 04:00 Room Air 04/15/16 00:34 36.9 67 18 142/88 98 Room Air 04/15/16 00:01 Room Air 04/14/16 20:00 Room Air 04/14/16 19:36 36.9 81 22 176/106 96 Room Air 04/14/16 16:00 Room Air 04/14/16 15:29 36.4 75 18 147/84 99 Room Air 04/14/16 14:18 Room Air 04/14/16 14:00 37.1 75 18 168/109 99 Room Air 04/14/16 08:40 37.1 79 21 159/115 98 Room Air 04/14/16 08:00 Room Air Physical Exam: General-aaox3 Eyes-no scleral icterus ENT-mmm Neck-supple Lungs-clear Heart-regular Abdomen-mild tenderness Extremities-no edema Neuro-nonfocal, exertional tremor Current Inpatient Medications Medications (Trade) Dose Ordered Sig/Sania Route Start Time Stop Time Status Last Admin Dose Admin Heparin Sodium (Porcine) (Heparin Sq 5000 Unit/0.5ml) 5,000 unit Q8 SQ 04/11/16 14:00 05/11/16 13:59 Acetaminophen (Tylenol Tab) 650 mg Q4H PRN PO 04/11/16 08:00 05/11/16 07:59 Ondansetron HCl (Zofran Inj) 4 mg Q6H PRN IV 04/11/16 08:00 05/11/16 07:59 Polyethylene (Miralax Powder Packet) 17 gm DAILY PRN PO 04/11/16 08:00 05/11/16 07:59 Insulin Glargine (Lantus Solostar Pen) 12 unit Q12 SC 04/11/16 10:30 05/11/16 10:29 Insulin Aspart (novoLOG ASPART) SLIDING SCALE If C... ACHS SC 04/11/16 11:00 05/11/16 10:59 Glucose (Glucose 40% Gel) 15-30 GRAMS 15 GRAMS... UD PRN PO 04/11/16 08:00 05/11/16 07:59 Glucose (Glucose Chew Tab) 4-8 Tablets 4 Tabl... UD PRN PO 04/11/16 08:00 05/11/16 07:59 Dextrose (Dextrose 50% 50ML Syringe) 25-50ML OF 50% DW IV FOR... UD PRN IV 04/11/16 08:00 05/11/16 07:59 Glucagon (Glucagon Inj) 1 mg UD PRN SQ 04/11/16 08:00 05/11/16 07:59 Hydromorphone HCl (Dilaudid Tab) 4 mg QID PRN PO 04/11/16 08:00 04/25/16 07:59 04/15/16 04:19 4 MG Hydromorphone HCl (Dilaudid Tab) 8 mg TID PO 04/11/16 10:30 04/25/16 10:29 04/14/16 21:18 8 MG Hydralazine HCl (HydrALAZINE INJ) 10 mg Q6H PRN IV. 04/11/16 08:30 05/11/16 08:29 Hydroxyzine HCl (Vistaril Tab) 10 mg Q6H PRN PO 04/11/16 23:00 05/11/16 22:59 04/11/16 23:12 10 MG Carvedilol (Coreg Tab) 12.5 mg BID PO 04/14/16 21:00 05/14/16 20:59 04/14/16 21:18 12.5 MG Last 24 Hours Test 04/14/16 06:55 04/14/16 14:15 04/14/16 16:01 04/15/16 04:44 Bedside Glucose 114 mg/dl 167 mg/dl 156 mg/dl Assessment & Plan ESRD-rechecking potassium today. if k is good, will plan on t/h/s schedule which is his regularly scheduled days. ok from renal perspective to go home when medically cleared by hospitalist. HTN: on coreg have attempted to increase fluid removal as tolerated to help with bp. likely needs more bp meds but has several intolerances to bp meds contributing to non-compliance with bp medications and elevated bp. greatly appreciate cardiology help in the management of this complicated patient.
[2016-04-15] MEDS: INSULIN ASPART 100 UNITS/ML 3 ML PEN SC SCH (07:00)
[2016-04-15 07:38] VITALS: BP 171/110; PULSE 75; TEMP 36.5; O2SAT 98
[2016-04-15] MEDS: INSULIN GLARGINE SOLOSTAR 100 UNITS/ML 3 ML PEN SC SCH (08:17)
[2016-04-15] MEDS: CARVEDILOL 12.5 MG TAB PO SCH (08:17)
[2016-04-15 08:20] LABS: BUN/CREATININE RATIO 7.7 (10-20); CALCIUM 7.5 mg/dl (8.5-10.1); CREATININE 5.9 mg/dl (0.60-1.40); MAGNESIUM 2.3 mg/dl (1.8-2.4)
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
[2016-04-15] MEDS ORDERED: HYDROmorphone HCL 2 MG TAB PO ONE (09:00)
[2016-04-15] MEDS ORDERED: CRG125 PO (09:22)
[2016-04-15] MEDS ORDERED: HYT1 PO (09:22)
--- NOTE | 2016-04-15 09:27 | Discharge Instructions ---
Discharge Instructions Admission Reason for Admission: Sepsis Discharge Discharge Diagnosis / Problem: Acute on chronic CHF with diastolic dysfunction , Uncontrolled Hypertension Discharge Goals Goal(s): Decrease discomfort, Improve function Activity Recommendations Activity Limitations: resume your previous activity Exercise/Sports Limitations: as tolerated Driving or Machine Use: Resume driving after cleared by your primary care physician . Instructions / Follow-Up Instructions / Follow-Up Follow up with in 1 week. Please call for appointment Follow up with (Cardiology) on May 17 at 3:00pm at [facility] Follow up with your Billiard Table Mechanic for dialysis as scheduled Take medications regularly as prescribed. Seek immediate medical attention if your symptoms reoccur or worsen Current Hospital Diet Patient's current hospital diet: Diabetes Type 2 Diet Discharge Diet Recommended Diet: Diabetes Type 2 Diet Pending Studies Studies pending at discharge: no Laboratory Results Hemoglobin A1c Test 04/12/16 06:15 Range/Units Estimated Average Glucose 108 mg/dl Hemoglobin A1c 5.4 4.5-5.6 % Medical Emergencies . Who to Call and When: Medical Emergencies: If at any time you feel your situation is an emergency, please call 911 immediately. . Non-Emergent Contact Non-Emergency issues call your: Primary Care Provider, Lna, Billiard Table Mechanic Call Non-Emergent contact if: you have a fever, your pain is not controlled, your pain is worsening, your pain is unusual for you, you have any medication questions . . "Provider Documentation" section prepared by Jayden Jennings. VTE Core Measure Inpt VTE Proph given/why not?: Unfractionated heparin SQ
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
[2016-04-15 10:19] VITALS: BP 157/96
[2016-04-15 10:45] VITALS: BP 157/96; PULSE 75; TEMP 36.5; O2SAT 98
--- NOTE | 2016-04-15 10:58 | PROGRESS NOTE ---
DATE: 04/15/2016 CARDIOLOGY CONSULTATION FOLLOWUP NOTE SUBJECTIVE: The patient notes no complaints this morning. Blood pressures have still been labile since admission. Notes no back pain, chest pain, or shortness of breath. Edema has substantially improved. Overall, the patient clinically looks improved other than elevated blood pressures. OBJECTIVE: VITAL SIGNS: Heart rate is 75, blood pressure is 157/96. Telemetry reveals no further atrial arrhythmias. NECK: Thin. There is no jugular venous distention. LUNGS: Clear. CARDIOVASCULAR: Regular. There is no S3 gallop. There is grade 1/6 systolic murmur. ABDOMEN: Soft with large ventral hernia. EXTREMITIES: Reveal trace to 1+ pedal edema. LABORATORY STUDIES TODAY: Sodium is 137, potassium is 5.0, chloride is 104, bicarbonate is 22, BUN is 44, and creatinine is 5.9. IMPRESSION: A 45-year-old male seen for transient aFib flutter while in hospital, now without recurrence of arrhythmias has issues with chronic end-stage renal disease and labile of longstanding hypertension. RECOMMENDATIONS: Would continue carvedilol current dosing at 12.5 mg twice per day, add terazosin 2 mg at bedtime, depending tolerance given past difficulties with medications. The patient should be followed up as an outpatient in nephrology with dialysis appointments and blood pressure medications adjusted to tolerance.
[2016-06-01] MEDS ORDERED: BISA10SU3 PR (13:38)
[2016-06-01] MEDS ORDERED: OMEP20TA PO (13:38)
[2016-06-01] MEDS ORDERED: GEMF600T3 PO (13:38)
[2016-06-01] MEDS ORDERED: AMINLIQ31 PO (13:38)
[2016-06-01] MEDS ORDERED: INSU100I2 SQ (13:38)
[2016-06-01] MEDS ORDERED: LACT10SO30 PO (13:38)
[2016-06-01] MEDS ORDERED: INSDGIPEN SQ ×2 (13:38)
== END 2016-04-15 12:26 | disposition home or self-care (01) | DRG 291 ==
LOC: ENRESERVTM → ENRESERVDT → EDBD 03:36 → C.EDB 03:38 → C.2E 07:52
PROVIDERS: ADMIT Hospitalist; ATTEND Internal Medicine
DX: I50.33 Acute on chronic diastolic (congestive) heart failure (principal); N18.6 End stage renal disease; K86.1 Other chronic pancreatitis; I13.2 Hypertensive heart and chronic kidney disease with heart failure and with stage 5 chronic kidney disease, or end stage renal disease; I48.91 Unspecified atrial fibrillation; E87.5 Hyperkalemia; E10.22 Type 1 diabetes mellitus with diabetic chronic kidney disease; I48.0 Paroxysmal atrial fibrillation; G89.4 Chronic pain syndrome; E10.9 Type 1 diabetes mellitus without complications; F17.210 Nicotine dependence, cigarettes, uncomplicated; Z99.2 Dependence on renal dialysis